=== PATIENT | female | born 1970 | race Caucasian/White ===

== ENCOUNTER → 2016-04-19 | Outpatient (CLI) | payer BC ==
[~2016-04-19] MED LIST: AGM875T PO; CIPR500T4 PO; HYDR-3812 PO; PRD20T PO; [UNRECOGNIZED DRUG - CODE] PO
--- OUTSIDE RECORDS SUMMARY | 2016-04-19 13:29 | XMS REPORT | Continuity of Care Document ---
Author Author [facility] Organization [facility] Address Unknown Phone Unavailable Care Team Providers Care Director Of [employer] Work Name Role Phone MUNIR PARSON MD PCP Insurance Providers Payer Name Policy Number Subscriber Name Relationship [facility] [id number] Claudia Vidal 18 Self / Same As Patient Advance Directives Directive Response Recorded Date/Time Advance Directives No 09/23/13 7:10pm Problems Medical Problems Problem Onset Date Status Left otitis media Unknown Active Pink's palsy Unknown Active Medications Medication Dose Route Sig Days/Qty Instructions Order Date Discontinued Date Status Ciprofloxacin 500 Mg PO TWICE A DAY 10 Qty 05/14/13 09/22/13 Discontinued Amoxicillin/Clavulanate K 1 Tab PO TWICE A DAY 20 Qty 09/22/13 Active Prednisone 60 Mg PO DAILY 21 Qty 09/23/13 Active Valacyclovir Hcl 1,000 Mg PO THREE TIMES A DAY 21 Qty 09/23/13 Active Social History Social History Problem Response Recorded Date/Time Alcohol Use Denies Use 09/23/2013 7:10pm Recreational Drug Use No 09/23/2013 7:10pm Recent Foreign Travel [place] 12/12/2013 2:22pm Hospital Discharge Instructions No hospital discharge instructions. Plan of Care No plan of care. Functional Status No functional status results. Allergies, Adverse Reactions, Alerts Allergen Type Severity Reaction Status Last Updated No Known Drug Allergies Active 05/14/13 Immunizations Name Given Type Tetanus Booster (TDap) Unknown Historical Vital Signs No known vital signs results. Results Laboratory Results Test Name Result Units Flags Reference Collection Date/Time Result Date/ Time Comments White Blood Count 13.2 10^3/uL H 4.3-11.0 12/12/2013 2:35pm 12/12/2013 2: 40pm Red Blood Count 4.70 10^6/uL 4.35-5.85 12/12/2013 2:35pm 12/12/2013 2: 40pm Hemoglobin 12.7 G/DL 11.5-16.0 12/12/2013 2:35pm 12/12/2013 2:40pm Hematocrit 39 % 35-52 12/12/2013 2:35pm 12/12/2013 2:40pm Mean Corpuscular Volume 82 FL 80-99 12/12/2013 2:35pm 12/12/2013 2: 40pm Mean Corpuscular Hemoglobin 27 PG 25-34 12/12/2013 2:35pm 12/12/2013 2: 40pm Mean Corpuscular Hemoglobin Concent 33 G/DL 32-36 12/12/2013 2:35pm 2:40pm Red Cell Distribution Width 15.5 % H 10.0-14.5 12/12/2013 2:35pm 2013 2:40pm Platelet Count 420 10^3/uL H 130-400 12/12/2013 2:35pm 12/12/2013 2:40pm Mean Platelet Volume 9.3 FL 7.4-10.4 12/12/2013 2:35pm 12/12/2013 2: 40pm Neutrophils (%) (Auto) 67 % 42-75 12/12/2013 2:35pm 12/12/2013 2:40pm Lymphocytes (%) (Auto) 24 % 12-44 12/12/2013 2:35pm 12/12/2013 2:40pm Monocytes (%) (Auto) 7 % 0-12 12/12/2013 2:35pm 12/12/2013 2:40pm Eosinophils (%) (Auto) 2 % 0-10 12/12/2013 2:35pm 12/12/2013 2:40pm Basophils (%) (Auto) 1 % 0-10 12/12/2013 2:35pm 12/12/2013 2:40pm Neutrophils # (Auto) 8.8 X 10^3 H 1.8-7.8 12/12/2013 2:35pm 12/12/2013 2: 40pm Lymphocytes # (Auto) 3.2 X 10^3 1.0-4.0 12/12/2013 2:35pm 12/12/2013 2: 40pm Monocytes # (Auto) 0.9 X 10^3 0.0-1.0 12/12/2013 2:35pm 12/12/2013 2: 40pm Eosinophils # (Auto) 0.3 10^3/uL 0.0-0.3 12/12/2013 2:35pm 12/12/2013 2 :40pm Basophils # (Auto) 0.1 10^3/uL 0.0-0.1 12/12/2013 2:35pm 12/12/2013 2: 40pm Sodium Level 140 MMOL/L 135-145 12/12/2013 2:35pm 12/12/2013 3:29pm Potassium Level 3.8 MMOL/L 3.6-5.0 12/12/2013 2:35pm 12/12/2013 3:29pm Chloride Level 105 MMOL/L 98-107 12/12/2013 2:35pm 12/12/2013 3:29pm Carbon Dioxide Level 26 MMOL/L 21-32 12/12/2013 2:35pm 12/12/2013 3: 29pm Blood Urea Nitrogen 14 MG/DL 7-18 12/12/2013 2:35pm 12/12/2013 3:29pm Creatinine 0.79 MG/DL 0.60-1.30 12/12/2013 2:35pm 12/12/2013 3:29pm BUN/Creatinine Ratio 18 12/12/2013 2:35pm 12/12/2013 3:29pm Estimat Glomerular Filtration Rate > 60 12/12/2013 2:35pm 2013 3:29pm GFR INTERPRETIVE DATA UNITS FOR ESTIMATED GFR (eGFR): mL/min/1.73 M2 REFERENCE RANGE FOR ESTIMATED GFR (eGFR) eGFR NORMAL eGFR >60 MODERATELY DECREASED eGFR 30-59 SEVERLY DECREASED eGFR 15-29 KIDNEY FAILURE <15 (OR DIALYSIS) Glucose Level 108 MG/DL H 70-105 12/12/2013 2:35pm 12/12/2013 3:29pm Calcium Level 9.4 MG/DL 8.5-10.1 12/12/2013 2:35pm 12/12/2013 3:29pm Total Bilirubin 0.3 MG/DL 0.1-1.0 12/12/2013 2:35pm 12/12/2013 3:29pm Alkaline Phosphatase 71 U/L 40-136 12/12/2013 2:35pm 12/12/2013 3:29pm Aspartate Amino Transf (AST/SGOT) 24 U/L 5-34 12/12/2013 2:35pm 2013 3:29pm Alanine Aminotransferase (ALT/SGPT) 32 U/L 0-55 12/12/2013 2:35pm 12/12 3:29pm Total Protein 7.7 G/DL 6.4-8.2 12/12/2013 2:35pm 12/12/2013 3:29pm Albumin 4.0 G/DL 3.2-4.5 12/12/2013 2:35pm 12/12/2013 3:29pm Procedures No known history of procedures. Encounters Encounter Location Date/Time Discharged Recurring [facility] 12/12/13 2:22pm
--- NOTE | 2016-04-19 18:22 | Diagnostic Imaging Report ---
EXAMINATION: Digital mammogram bilateral screening. INDICATION: Screening. COMPARISON: This study was compared to the prior exam of 12/19/2013 and 03/14/2011. At this time, there are no current complaints. The current study was also evaluated with a Computer Aided Detection (CAD) system. FINDINGS: There is only a mild amount of fibroglandular tissue in both breasts. When compared to the previous study, there does not appear to have been any significant change. On the MLO views, there was a considerable amount of deodorant artifact, particularly on the right. These views were repeated after the axillae were cleaned. Most of the artifact appears to have been removed. IMPRESSION: 1. There is no evidence of malignancy. 2. The patient should have her annual bilateral screening mammogram on schedule in March of 2017. ACR BI-RADS Category 1: Negative. Result letter will be mailed to the patient. Note: At least 10% of breast cancer is not imaged by mammography. Dictated by: Dictated on workstation # [id number]
== END ==
LOC: RAD 10:43
PROVIDERS: ATTEND Family Medicine
DX: Z12.31 Encounter for screening mammogram for malignant neoplasm of breast (principal)
CPT/HCPCS: 77067

== ENCOUNTER → 2019-02-14 | Outpatient (CLI) | payer BC ==
[~2019-02-14] MED LIST changes: +ACHD5005 PO; -HYDR-3812 PO
--- NOTE | 2019-02-14 18:51 | Diagnostic Imaging Report ---
HISTORY: Decreased range of motion of the left shoulder for a couple of weeks. Left shoulder pain. TECHNIQUE: Three views of the left shoulder. COMPARISON: None. FINDINGS: No acute fracture or dislocation is seen in the left shoulder. Alignment is normal. There are mild degenerative changes in the acromioclavicular joint. Mild calcification is seen adjacent to the humeral head. IMPRESSION: 1. No acute osseous abnormality is seen in the left shoulder. 2. Mild degenerative changes in the left AC joint. 3. 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 Dictated by: Dictated on workstation # [id number]
== END ==
LOC: RAD 17:31
PROVIDERS: ATTEND Nurse Practitioner Family
DX: M19.012 Primary osteoarthritis, left shoulder (principal)
CPT/HCPCS: 73030

== ENCOUNTER → 2019-03-15 | Outpatient (CLI) | payer BC ==
[2019-03-15 19:24] LABS: ABSOLUTE RETIC # 67 10e9/L (24-90); BASOPHILS % (AUTO) 0 % (0-10); EOSINOPHILS # (AUTO) 0.1 10^3/uL (0.0-0.3); EOSINOPHILS % (AUTO) 1 % (0-10); HEMATOCRIT 41 % (35-52); LYMPHOCYTES # (AUTO) 2.4 X 10^3 (1.0-4.0); LYMPHOCYTES % (AUTO) 15 % (12-44); MEAN CORPUSCULAR HEMOGLOBIN 27 PG (25-34); MEAN CORPUSCULAR HGB CONC 32 G/DL (32-36); MEAN CORPUSCULAR VOLUME 84 FL (80-99); MEAN PLATELET VOLUME 9.4 FL (7.4-10.4); MONOCYTES # (AUTO) 0.9 X 10^3 (0.0-1.0); MONOCYTES % (AUTO) 5 % (0-12); NEUTROPHILS # (AUTO) 12.7 X 10^3 (1.8-7.8); NEUTROPHILS % (AUTO) 79 % (42-75); PLATELET COUNT 469 10^3/uL (130-400); RED CELL DISTRIBUTION WIDTH 14.5 % (10.0-14.5); RETICULOCYTE % 1.37 % (0.50-2.40); WHITE BLOOD COUNT 16.1 10^3/uL (4.3-11.0)
[2019-03-15 20:22] LABS: BASOPHILS % (MANUAL) 1 %; LYMPHOCYTES % (MANUAL) 14 %; MONOCYTES % (MANUAL) 2 %; NEUTROPHILS % (MANUAL) 83 %; RBC MORPH NORMAL
== END ==
LOC: LAB 19:03
PROVIDERS: ATTEND Nurse Practitioner Family
DX: D72.829 Elevated white blood cell count, unspecified (principal)
CPT/HCPCS: 36415; 85007; 85027; 85045

== ENCOUNTER → 2019-04-26 | Outpatient (CLI) | payer BC ==
[2019-04-26 18:35] LABS: BASOPHILS # (AUTO) 0.1 10^3/uL (0.0-0.1); BASOPHILS % (AUTO) 0 % (0-10); EOSINOPHILS # (AUTO) 0.2 10^3/uL (0.0-0.3); EOSINOPHILS % (AUTO) 2 % (0-10); HEMATOCRIT 39 % (35-52); HEMOGLOBIN 12.6 G/DL (11.5-16.0); LYMPHOCYTES # (AUTO) 3.2 X 10^3 (1.0-4.0); LYMPHOCYTES % (AUTO) 27 % (12-44); MEAN CORPUSCULAR HEMOGLOBIN 27 PG (25-34); MEAN CORPUSCULAR HGB CONC 33 G/DL (32-36); MEAN CORPUSCULAR VOLUME 84 FL (80-99); MEAN PLATELET VOLUME 9.6 FL (7.4-10.4); MONOCYTES # (AUTO) 0.9 X 10^3 (0.0-1.0); MONOCYTES % (AUTO) 8 % (0-12); NEUTROPHILS # (AUTO) 7.4 X 10^3 (1.8-7.8); NEUTROPHILS % (AUTO) 63 % (42-75); PLATELET COUNT 402 10^3/uL (130-400); RED CELL DISTRIBUTION WIDTH 14.8 % (10.0-14.5); WHITE BLOOD COUNT 11.7 10^3/uL (4.3-11.0)
== END ==
LOC: LAB 18:20
PROVIDERS: ATTEND Nurse Practitioner Family
DX: D47.3 Essential (hemorrhagic) thrombocythemia (principal); D72.89 Other specified disorders of white blood cells
CPT/HCPCS: 36415; 85025

== ENCOUNTER → 2020-11-06 | Outpatient (CLI) | payer BC ==
--- NOTE | 2020-11-06 15:56 | Diagnostic Imaging Report ---
PROCEDURE: US thyroid. TECHNIQUE: Multiple real-time grayscale images were obtained of the thyroid in various projections. INDICATION: Hyperthyroidism, thyroid nodule. COMPARISON: None available. FINDINGS: The right lobe of the thyroid gland is mildly enlarged measuring 5.4 x 2.2 x 1.4 cm. It demonstrates a heterogeneous echotexture without discrete nodule. Left lobe of thyroid gland is enlarged measuring 6.2 x 3.0 x 2.6 cm. A dominant solid nodule is seen replacing the majority of the left thyroid lobe. This nodule is isoechoic with circumscribed margins, measuring 4.1 x 2.8 x 2.5 cm. A solid ovoid isoechoic nodule with circumscribed margins is noted within the isthmus measuring 2.1 x 2.0 x 1.4 cm. IMPRESSION: 1. 4.1 cm TI-RADS 3 nodule within the left thyroid lobe. Recommend fine-needle aspiration for further evaluation. 2. 2.1 cm TI-RADS 3 nodule within the isthmus. Recommend a follow-up ultrasound of thyroid gland in one year. 3. Mild enlargement of the thyroid gland. Dictated by: Dictated on workstation # [id number]
== END ==
LOC: RAD 14:30
PROVIDERS: ATTEND Nurse Practitioner Family
DX: E05.20 Thyrotoxicosis with toxic multinodular goiter without thyrotoxic crisis or storm (principal)
CPT/HCPCS: 76536

== ENCOUNTER → 2020-11-13 | Outpatient (CLI) | payer BC ==
[~2020-11-13] VITALS: Ht 160 cm; Wt 131.8 kg
[~2020-11-13] MED LIST changes: +LIDOCAINE 1% INJ 20 ML 20 ML VIAL INJ ONE
--- NOTE | 2020-11-13 17:09 | Diagnostic Imaging Report ---
INDICATION: Left lobe thyroid nodule. Patient presents for ultrasound-guided fine-needle aspiration and biopsy. PROCEDURE: Patient was brought to the procedure room and placed on table in the supine position. Ultrasound imaging of the left neck was performed to evaluate appropriate entry site. Left neck was then prepped and draped in the usual sterile fashion. A small amount of 1% lidocaine was utilized for local anesthesia. A total of four passes were made into the dominant solid mass left lobe of the thyroid utilizing 25-gauge needles and fine-needle aspiration technique. A single pass was made with a Rotex needle and a Rotex biopsy was performed. The needle was removed and hemostasis was obtained. The patient tolerated the procedure well and left department in stable condition. IMPRESSION: Successful ultrasound-guided left thyroid nodule fine-needle aspiration and Rotex biopsy. Pathology results are currently pending. Dictated on workstation # [id number]
== END ==
LOC: RAD 14:47
PROVIDERS: ATTEND Family Medicine
DX: E04.1 Nontoxic single thyroid nodule (principal)
CPT/HCPCS: 10005